=== PATIENT | male | born 1960 | race African-American/Black ===

== ENCOUNTER 2017-01-06 22:59 | Inpatient (IN) | payer BC ==
--- NOTE | ~2017-01-06 | CN ---
Consultation Report [facility] [address] [place]. [address] NAME: SELENE POOL : 64 STATUS : ADM IN PAT#: [id number] AGE: 56 ADM/REG DATE : 01/07/17 MR#: [id number] REPORT SERV DATE: 01/07/17 DICTATED BY: CYNTHIA MOMIN DATE: 01/07/17 REPORT STATUS : Draft TRANSCRIBED BY: MODL DATE: 01/07/17 CONSULTATION DATE OF CONSULTATION: Thank you for the opportunity to consult on this patient. HISTORY OF PRESENT ILLNESS: Mr. Pool is a 56-year-old man with chronic cough and chronic dyspnea, but no previous label of chronic lung disease and no personal smoking history. He is followed by Dr. Sheila Merino, for primary care and Dr. Momo Noel, for cardiac care. He came in with atypical chest pain, shortness of breath. He has had a cough productive of scant amounts of white sputum. No fevers, chills, or night sweats. PAST MEDICAL HISTORY: Significant for no previous label of chronic lung disease, though again he does have a chronic cough for couple of years. He is obese. He has diabetes, hypertension, and previous coronary artery bypass graft surgery. SOCIAL HISTORY: Significant for being a lifelong never smoker. No alcohol abuse, illicit drug use, or occupational exposure to pulmonary toxins. FAMILY HISTORY: Significant for asthma. REVIEW OF SYSTEMS: Review of 10 systems was performed and is positive for what was noted above. PHYSICAL EXAMINATION: GENERAL: On exam, he is awake and alert, and in no obvious respiratory distress. HEENT: Normocephalic, atraumatic. NECK: Supple. No lymphadenopathy. No JVD. CHEST: Symmetric with good expansion bilaterally. LUNGS: Mostly clear, though he does have a prolonged expiratory phase and coughing with performance of a forced vital capacity maneuver. CARDIOVASCULAR: He has S1 and S2, which are distant, but regular rate and rhythm. ABDOMEN: Benign. EXTREMITIES: He has no edema, no clubbing, no cyanosis. ASSESSMENT AND PLAN: Chronic obstructive lung disease. He has severe chronic obstructive lung disease on PFTs going back at least to 2014. He also had a CT scan of the chest in 2014 that showed mild bibasilar bronchiectasis. His repeat CT scan has showed some mild progression, though again it also appears fairly mild and not that different from the CT from two years ago. He does have airway hyperreactivity and appears to have frequent infections and bronchiectasis does help explain both the chronic cough, the chronic sputum production, and his position of worsening cough and worsening sputum production. We will recommend pulmonary clearance maneuvers, bronchodilators, and inhaled cortical steroid, and we will start him on antibiotics and steroids for mild acute exacerbation of bronchiectasis Consultation Report [facility] [id number] [place]. [address] NAME: SELENE POOL : 64 STATUS : ADM IN PAT#: [id number] AGE: 56 ADM/REG DATE : 01/07/17 MR#: [id number] REPORT SERV DATE: 01/07/17 DICTATED BY: CYNTHIA MOMIN DATE: 01/07/17 REPORT STATUS : Draft TRANSCRIBED BY: SIXTO DATE: 01/07/17 and chronic obstructive lung disease. We appreciate the opportunity to participate in his care with you and we will be glad to see him as an outpatient as well. Please do not hesitate to contact me if I could be of any further assistance. ARYA/SIXTO Cynthia Momin M.D. / [id number] CC: Momo Noel III, M.D., [facility], [facility] Sheila Merino M.D.
--- NOTE | ~2017-01-06 | DS ---
Discharge Summary [facility] [address] [facility] [place]. [address] NAME: SELENE BIRMINGHAM : 64 STATUS : DIS IN PAT#: [id number] AGE: 56 ADM/REG DATE : 01/07/17 MR#: [id number] REPORT SERV DATE: 01/23/17 DICTATED BY: MADINA NOEL III DATE: 01/22/17 REPORT STATUS : Draft TRANSCRIBED BY: SIXTO DATE: 01/22/17 Data Collection from hospitalization DISCHARGE DIAGNOSES: 1. Atrial flutter. 2. Coronary artery disease. 3. Nonanginal chest pain. 4. Sternal nonunion. 5. Bronchiectasis with severe asthma. 6. Obstructive sleep apnea. 7. Moderate mitral regurgitation. 8. Hypertension/left ventricular hypertrophy. 9. Morbid obesity. 10.Type 2 diabetes. 11.Hyperlipoproteinemia. 12.History of non-Hodgkin's lymphoma. 13.Hypothyroidism. 14.Osteoarthritis. CONSULTATIONS: Marquise Momin M.D. PROCEDURES PERFORMED: CT scan of the brain without contrast on 01/06/2017. MEDICATIONS: Dulera 200 two puffs twice a day, amiodarone 200 mg as instructed, aspirin 81 mg daily, diltiazem CD 360 mg every morning as instructed, carvedilol 25 mg twice a day as instructed, warfarin 10 mg as directed, and lisinopril 20 mg every morning as instructed. CONDITION AT DISCHARGE: Stable. DISPOSITION: The patient was discharged home on a low-sodium, 1800-calorie cardiac/diabetic diet with activities as instructed. He would follow up with Dr. Marquise Momin six to eight weeks following discharge, he would follow up with Dr. Madina Noel on 01/15/2017, and he would follow up with Dr. Sheila Merino two weeks following discharge. HOSPITAL COURSE: This is a 56-year-old man who has had dull substernal chest pain precipitated by exertion, chest movement, and deep inspiration. He denied any relation to emotional upset or oral intake. He denied any relief with sublingual nitroglycerin. He has had progressive increase in the frequency, duration, and intensity of his chest pain. He had noticed chest pain at rest. The patient was awakened from sleep with chest pain. On 12/30/2014, he underwent 2D and Doppler echocardiogram, which demonstrated mild concentric left ventricular hypertrophy and mild diastolic dysfunction. On 11/03/2015, the patient underwent intravenous regadenoson PET scan, which demonstrated reversible inferolateral defect and calculated global left ventricular ejection fraction of 40%. The patient had a history of postoperative atrial fibrillation. He had undergone synchronized DC cardioversion in 2013. Since that time, he had been maintained on amiodarone. Pulmonary function test in 2015 demonstrated restrictive ventilatory defect and mild obstructive ventilatory defect and severe reduction in the DLCO. The patient complains of occasional palpitation, but denies any history of syncope. The patient complained of dyspnea on Discharge [address] [address] NAME: SELENE BIRMINGHAM : 64 STATUS : DIS IN PAT#: [id number] AGE: 56 ADM/REG DATE : 01/07/17 MR#: [id number] REPORT SERV DATE: 01/23/17 DICTATED BY: MADINA NOEL III DATE: 01/22/17 REPORT STATUS : Draft TRANSCRIBED BY: SIXTO DATE: 01/22/17 exertion at less than 100 feet and occasional paroxysmal nocturnal dyspnea, trepopnea, platypnea, and progressive lower extremity edema extending up to the level of the knees. The patient denied orthopnea or sacral edema. There is no history of rheumatic fever or cardiac murmur. The patient has a chronic cough and chronic dyspnea, but no previous label of chronic lung disease and no personal smoking history. The patient presented with atypical chest pain and shortness of breath. He was admitted to the hospital for further evaluation and treatment. Upon admission, he was seen by Dr. Marquise Momin. The patient had a productive cough of scant amounts of white sputum. It was felt that the patient had chronic obstructive lung disease going back at least to 2014. CT scan of the chest in 2014 had shown mild bibasilar bronchiectasis. Repeat CT scan had shown some mild progression, though again it all appears fairly mild and not that different from the CT scan two years ago. He does have airway hyperreactivity and appears to have frequent infections and bronchiectasis, which does have explained both the chronic cough and chronic sputum production and his position of worsening cough and worsening sputum production. He recommended pulmonary clearance maneuvers, bronchodilators, and inhaled cortical steroids. We were going to start him on antibiotics and steroids for mild acute exacerbation of bronchiectasis and chronic obstructive lung disease. A CT scan of the brain without contrast had been performed. There were mild atrophy features present, but no acute infarction or bleed was seen. The following day, his dyspnea and chest pain had improved. He had palpitations only with exertion. Telemetry revealed atrial flutter with controlled ventricular response. He was changed from IV diltiazem to oral diltiazem. The patient had obstructive sleep apnea with 4.9 second pauses. He was fleeing mildly better. His chest tightness had decreased. His cough had decreased. Steroids, antibiotics, and bronchodilators were continued. On 01/09/2017, he had some left hand paresthesias. Telemetry continued to show atrial flutter. He had no edema. INR level was 1.3. Diltiazem CD was increased. Amiodarone was increased. Lisinopril was increased as well as warfarin. On 01/10/2017, he continued to improve. Dulera was continued at this time. He remained in atrial flutter with a controlled ventricular response. He had 1+ pitting bilateral pitting edema. Dyspnea and palpitations had improved. Warfarin was increased. Over the next couple of days, discharge planning was performed. Bumetanide was discontinued. Warfarin was decreased. On 01/12/2017, he did have chest pain with coughing. He had no dyspnea on exertion or palpitations. Discharge instructions were given. Due to his improved and stable condition, he was discharged home with the above-stated instructions. Information collected by: Evelyn Nevarez I submit the above information as my discharge summary. TG/MODL Madina Noel III, M.D., [facility], [facility] / [id number] Discharge Summary [address] [address] NAME: SELENE BIRMINGHAM : 64 STATUS : DIS IN PAT#: [id number] AGE: 56 ADM/REG DATE : 01/07/17 MR#: [id number] REPORT SERV DATE: 01/23/17 DICTATED BY: MADINA NOEL III DATE: 01/22/17 REPORT STATUS : Draft TRANSCRIBED BY: MODL DATE: 01/22/17 CC: Madina Noel III, M.D., [facility], [facility] Sheila Merino M.D.
[2017-01-06 22:11] LABS: BASOPHILS 0.5 %; BASOPHILS ABSOLUTE 0.03 10/3/uL (0.0-0.16); EOSINOPHILS 3.3 %; EOSINOPHILS ABSOLUTE 0.19 10/3/uL (0.0-0.53); ER CBC TAT 0 Hrs 02 Mins; HEMATOCRIT 33.2 % (40.0-51.0); HEMOGLOBIN 9.9 g/dL (13.6-17.8); IMMATURE GRANULOCYTES 0.3 %; IMMATURE GRANULOCYTES ABSOLUTE 0.02 10/3/uL (0.0-0.11); LYMPHOCYTES 20.2 %; LYMPHOCYTES ABSOLUTE 1.16 10/3/uL (0.67-4.30); MEAN CORPUS HGB CONC 29.8 g/dL (32.0-36.0); MEAN CORPUSCULAR HEMOGLOB 22.9 pg (26.0-34.0); MEAN PLATELET VOLUME 9.2 fL (9.2-13.0); MONOCYTES 8.2 %; MONOCYTES ABSOLUTE 0.47 10/3/uL (0.21-1.20); NEUTROPHILS 67.5 %; NEUTROPHILS ABSOLUTE 3.88 10/3/uL (2.02-8.40); PLATELET COUNT 92 10/3/uL (150-400); RBC DISTRIBUTION WIDTH 16.5 % (12.0-16.0); RED CELL COUNT 4.32 10/6/uL (4.7-6.1); WHITE BLOOD CELLS 5.8 10/3/uL (4.5-10.5)
[2017-01-06 22:12] LABS: MANUAL DIFF NO %; MEAN CORPUSCULAR VOLUME 76.9 fL (80-100)
[2017-01-06 22:24] LABS: INTERNATIONAL NORMAL RATI 1.2 UNITS (-); PARTIAL THROMBO TIME 30.4 SEC (22.5-37.2)
[2017-01-06 22:25] LABS: PROTIME (NOT ORD) 14.9 SEC (12.0-14.5)
[2017-01-06 22:27] LABS: BUN (BLOOD UREA NITROGEN) 23 MG/DL (6-23); CALCIUM, SERUM 9.9 MG/DL (8.5-10.4); CHEST PAIN PROFILE TAT 0 Hrs 18 Mins; CHLORIDE, SERUM 111 MMOL/L (96-112); CO2 (CARBON DIOXIDE) 30 MMOL/L (24-34); CREATININE 1.42 MG/DL (0.70-1.30); GFR AFRICAN AMERICAN 64 ML/MIN (>=60); GFR NON AFRICAN AMERICAN 56 ML/MIN (>=60); GLUCOSE, SERUM 222 MG/DL (60-99); SODIUM, SERUM 145 MMOL/L (135-148); TROPONIN I <0.02 NG/ML (<0.05)
[~2017-01-06 22:59] MED LIST: ASAB PO; COREG25 PO; DIGITEK0.25 MG PO; FE; FE OR; FLONASE NAS; GLUCOPHAGE1000 MG PO; JANUMET1 TA1 PO; KLONO1 PO; LEXAPRO20 PO; LIPITOR40 PO; LORTAB 5 PO; MICRONASE2.5 MG PO; MULTIPLE VIT PO; PACERONE200 MG PO; PRADAXA150 MG PO; PRILO PO; PRIN10 PO; PROTONIX PO; SINGULAIR1 PO; SYMBICORT 160/41 INH INH
[2017-01-06] MEDS ORDERED: LIPITOR40 PO (23:24)
[2017-01-06] MEDS ORDERED: ASAB PO (23:24)
[2017-01-06] MEDS ORDERED: SYN.05 PO (23:24)
[2017-01-06] MEDS ORDERED: BUM1 PO (23:25)
[2017-01-06] MEDS ORDERED: COREG25 PO (23:25)
[2017-01-06] MEDS ORDERED: CORDARONE PO (23:25)
[2017-01-06] MEDS ORDERED: GLUCOPHAGE1000 MG PO (23:25)
[2017-01-06] MEDS ORDERED: PRIN20 PO (23:26)
[2017-01-06] MEDS ORDERED: LEXAPRO20 PO (23:26)
[2017-01-06] MEDS ORDERED: CENTRUM PO (23:27)
[2017-01-06] MEDS ORDERED: KLONO5 PO (23:27)
[2017-01-06] MEDS ORDERED: DIABET2.5 PO (23:27)
[2017-01-06] MEDS ORDERED: C1 PO (23:27)
[2017-01-06] MEDS ORDERED: NITROSTAT0.4 MG SL (23:29)
[2017-01-08 04:51] LABS: BASOPHILS 0.3 %; BASOPHILS ABSOLUTE 0.02 10/3/uL (0.0-0.16); EOSINOPHILS 0.2 %; EOSINOPHILS ABSOLUTE 0.01 10/3/uL (0.0-0.53); HEMATOCRIT 33.8 % (40.0-51.0); HEMOGLOBIN 10.3 g/dL (13.6-17.8); IMMATURE GRANULOCYTES 0.2 %; IMMATURE GRANULOCYTES ABSOLUTE 0.01 10/3/uL (0.0-0.11); INTERNATIONAL NORMAL RATI 1.2 UNITS (-); LYMPHOCYTES 15.8 %; LYMPHOCYTES ABSOLUTE 1.05 10/3/uL (0.67-4.30); MEAN CORPUS HGB CONC 30.5 g/dL (32.0-36.0); MEAN CORPUSCULAR HEMOGLOB 23.5 pg (26.0-34.0); MEAN CORPUSCULAR VOLUME 77.2 fL (80-100); MEAN PLATELET VOLUME 9.6 fL (9.2-13.0); MONOCYTES 8.9 %; MONOCYTES ABSOLUTE 0.59 10/3/uL (0.21-1.20); NEUTROPHILS 74.6 %; NEUTROPHILS ABSOLUTE 4.95 10/3/uL (2.02-8.40); PLATELET COUNT 90 10/3/uL (150-400); PROTIME (NOT ORD) 15.2 SEC (12.0-14.5); RBC DISTRIBUTION WIDTH 16.3 % (12.0-16.0); RED CELL COUNT 4.38 10/6/uL (4.7-6.1); WHITE BLOOD CELLS 6.6 10/3/uL (4.5-10.5)
[2017-01-08 04:54] LABS: MANUAL DIFF NO %
[2017-01-08 05:08] LABS: FREE T4 1.05 NG/DL (0.76-1.46)
[2017-01-08 05:26] LABS: ULTRASENSITIVE TSH 2.52 MCIU/ML (0.358-3.740)
[2017-01-08 05:43] LABS: INTACT PTH (ICMA) 168.5 PG/ML (10.0-65.0)
[2017-01-09 05:22] LABS: BUN (BLOOD UREA NITROGEN) 24 MG/DL (6-23); CALCIUM, SERUM 10.1 MG/DL (8.5-10.4); CHLORIDE, SERUM 106 MMOL/L (96-112); CO2 (CARBON DIOXIDE) 29 MMOL/L (24-34); CREATININE 1.18 MG/DL (0.70-1.30); GFR AFRICAN AMERICAN 81 ML/MIN (>=60); GFR NON AFRICAN AMERICAN 70 ML/MIN (>=60); POTASSIUM, SERUM 4.3 MMOL/L (3.5-5.3); SODIUM, SERUM 142 MMOL/L (135-148)
[2017-01-09 05:26] LABS: GLUCOSE, SERUM 88 MG/DL (60-99)
[2017-01-09 05:35] LABS: INTERNATIONAL NORMAL RATI 1.3 UNITS (-); PROTIME (NOT ORD) 15.8 SEC (12.0-14.5)
[2017-01-09 05:39] LABS: BASOPHILS 0.4 %; BASOPHILS ABSOLUTE 0.03 10/3/uL (0.0-0.16); EOSINOPHILS 0.8 %; EOSINOPHILS ABSOLUTE 0.06 10/3/uL (0.0-0.53); HEMOGLOBIN 10.5 g/dL (13.6-17.8); IMMATURE GRANULOCYTES 0.3 %; IMMATURE GRANULOCYTES ABSOLUTE 0.02 10/3/uL (0.0-0.11); LYMPHOCYTES 21.4 %; LYMPHOCYTES ABSOLUTE 1.61 10/3/uL (0.67-4.30); MEAN CORPUS HGB CONC 30.9 g/dL (32.0-36.0); MEAN CORPUSCULAR HEMOGLOB 23.6 pg (26.0-34.0); MEAN CORPUSCULAR VOLUME 76.4 fL (80-100); MEAN PLATELET VOLUME 9.8 fL (9.2-13.0); MONOCYTES 11.7 %; MONOCYTES ABSOLUTE 0.88 10/3/uL (0.21-1.20); NEUTROPHILS 65.4 %; NEUTROPHILS ABSOLUTE 4.94 10/3/uL (2.02-8.40); PLATELET COUNT 96 10/3/uL (150-400); RBC DISTRIBUTION WIDTH 16.6 % (12.0-16.0); RED CELL COUNT 4.45 10/6/uL (4.7-6.1); WHITE BLOOD CELLS 7.5 10/3/uL (4.5-10.5)
[2017-01-09 05:47] LABS: MANUAL DIFF NO %
[2017-01-09 06:21] LABS: ELLIPTOCYTES 1+ (3-10/OIF) (0-2/OIF); OVALOCYTES 1+ (3-10/OIF) (0-2/OIF); PLATELET ESTIMATE DEC (ADEQUATE)
[2017-01-09 06:22] LABS: HYPOCHROMIA 1+ (3-10/OIF) (0-2/OIF)
[2017-01-10 04:51] LABS: BASOPHILS 0.4 %; BASOPHILS ABSOLUTE 0.03 10/3/uL (0.0-0.16); EOSINOPHILS 0.1 %; EOSINOPHILS ABSOLUTE 0.01 10/3/uL (0.0-0.53); HEMATOCRIT 33.7 % (40.0-51.0); HEMOGLOBIN 10.3 g/dL (13.6-17.8); IMMATURE GRANULOCYTES 0.3 %; IMMATURE GRANULOCYTES ABSOLUTE 0.02 10/3/uL (0.0-0.11); LYMPHOCYTES 22.1 %; LYMPHOCYTES ABSOLUTE 1.65 10/3/uL (0.67-4.30); MEAN CORPUS HGB CONC 30.6 g/dL (32.0-36.0); MEAN CORPUSCULAR HEMOGLOB 23.3 pg (26.0-34.0); MEAN CORPUSCULAR VOLUME 76.1 fL (80-100); MEAN PLATELET VOLUME 10.1 fL (9.2-13.0); MONOCYTES 12.2 %; MONOCYTES ABSOLUTE 0.91 10/3/uL (0.21-1.20); NEUTROPHILS 64.9 %; NEUTROPHILS ABSOLUTE 4.85 10/3/uL (2.02-8.40); PLATELET COUNT 106 10/3/uL (150-400); RBC DISTRIBUTION WIDTH 16.5 % (12.0-16.0); RED CELL COUNT 4.43 10/6/uL (4.7-6.1); WHITE BLOOD CELLS 7.5 10/3/uL (4.5-10.5)
[2017-01-10 04:53] LABS: MANUAL DIFF NO %
[2017-01-10 04:57] LABS: INTERNATIONAL NORMAL RATI 1.4 UNITS (-)
[2017-01-10 05:06] LABS: BUN (BLOOD UREA NITROGEN) 30 MG/DL (6-23); CALCIUM, SERUM 10.4 MG/DL (8.5-10.4); CHLORIDE, SERUM 106 MMOL/L (96-112); CO2 (CARBON DIOXIDE) 29 MMOL/L (24-34); CREATININE 1.36 MG/DL (0.70-1.30); GFR AFRICAN AMERICAN 68 ML/MIN (>=60); GFR NON AFRICAN AMERICAN 59 ML/MIN (>=60); POTASSIUM, SERUM 4.5 MMOL/L (3.5-5.3); SODIUM, SERUM 142 MMOL/L (135-148)
[2017-01-10 05:07] LABS: GLUCOSE, SERUM 109 MG/DL (60-99)
[2017-01-11 05:52] LABS: INTERNATIONAL NORMAL RATI 1.8 UNITS (-)
[2017-01-11 06:05] LABS: BASOPHILS 0.5 %; BASOPHILS ABSOLUTE 0.04 10/3/uL (0.0-0.16); EOSINOPHILS 0.3 %; EOSINOPHILS ABSOLUTE 0.02 10/3/uL (0.0-0.53); HEMATOCRIT 34.3 % (40.0-51.0); HEMOGLOBIN 10.8 g/dL (13.6-17.8); IMMATURE GRANULOCYTES 0.3 %; IMMATURE GRANULOCYTES ABSOLUTE 0.02 10/3/uL (0.0-0.11); LYMPHOCYTES 27.6 %; LYMPHOCYTES ABSOLUTE 2.17 10/3/uL (0.67-4.30); MEAN CORPUS HGB CONC 31.5 g/dL (32.0-36.0); MEAN CORPUSCULAR HEMOGLOB 23.5 pg (26.0-34.0); MEAN CORPUSCULAR VOLUME 74.7 fL (80-100); MEAN PLATELET VOLUME 10.2 fL (9.2-13.0); MONOCYTES 14.8 %; MONOCYTES ABSOLUTE 1.16 10/3/uL (0.21-1.20); NEUTROPHILS 56.5 %; NEUTROPHILS ABSOLUTE 4.45 10/3/uL (2.02-8.40); PLATELET COUNT 109 10/3/uL (150-400); RBC DISTRIBUTION WIDTH 16.4 % (12.0-16.0); RED CELL COUNT 4.59 10/6/uL (4.7-6.1); WHITE BLOOD CELLS 7.9 10/3/uL (4.5-10.5)
[2017-01-11 06:06] LABS: CALCIUM, SERUM 10.5 MG/DL (8.5-10.4); CHLORIDE, SERUM 104 MMOL/L (96-112); CO2 (CARBON DIOXIDE) 30 MMOL/L (24-34); CREATININE 1.53 MG/DL (0.70-1.30); GFR AFRICAN AMERICAN 59 ML/MIN (>=60); GFR NON AFRICAN AMERICAN 51 ML/MIN (>=60); MANUAL DIFF NO %; POTASSIUM, SERUM 4.9 MMOL/L (3.5-5.3); SODIUM, SERUM 139 MMOL/L (135-148)
[2017-01-11 06:07] LABS: PROTIME (NOT ORD) 20.4 SEC (12.0-14.5)
[2017-01-11 06:10] LABS: BUN (BLOOD UREA NITROGEN) 35 MG/DL (6-23); GLUCOSE, SERUM 73 MG/DL (60-99)
[2017-01-11 07:06] LABS: ELLIPTOCYTES 1+ (3-10/OIF) (0-2/OIF); HYPOCHROMIA 1+ (3-10/OIF) (0-2/OIF); MICROCYTES 1+ (5-10/OIF) (0-5/OIF); PLATELET ESTIMATE SLT DEC (ADEQUATE); POIKILOCYTOSIS 1+ (5-10/OIF) (0-5/OIF); TEARDROP SHAPED RBCS OCC (0-2/OIF)
[2017-01-12 06:13] LABS: HEMATOCRIT 32.6 % (40.0-51.0); HEMOGLOBIN 10.2 g/dL (13.6-17.8); MANUAL DIFF YES %; MEAN CORPUS HGB CONC 31.3 g/dL (32.0-36.0); MEAN CORPUSCULAR HEMOGLOB 23.7 pg (26.0-34.0); MEAN CORPUSCULAR VOLUME 75.6 fL (80-100); PLATELET COUNT 101 10/3/uL (150-400); RBC DISTRIBUTION WIDTH 16.1 % (12.0-16.0); RED CELL COUNT 4.31 10/6/uL (4.7-6.1); WHITE BLOOD CELLS 7.6 10/3/uL (4.5-10.5)
[2017-01-12 06:16] LABS: INTERNATIONAL NORMAL RATI 2.5 UNITS (-)
[2017-01-12 06:19] LABS: PROTIME (NOT ORD) 26.4 SEC (12.0-14.5)
[2017-01-12 06:26] LABS: CHLORIDE, SERUM 105 MMOL/L (96-112); CREATININE 1.48 MG/DL (0.70-1.30); GFR AFRICAN AMERICAN 61 ML/MIN (>=60); GFR NON AFRICAN AMERICAN 53 ML/MIN (>=60); POTASSIUM, SERUM 4.4 MMOL/L (3.5-5.3); SODIUM, SERUM 139 MMOL/L (135-148)
[2017-01-12 06:27] LABS: BUN (BLOOD UREA NITROGEN) 39 MG/DL (6-23); CO2 (CARBON DIOXIDE) 24 MMOL/L (24-34); GLUCOSE, SERUM 96 MG/DL (60-99)
[2017-01-12 12:21] LABS: BAND NEUTROPHILS 4 %; BASOPHILS 1 %; BASOPHILS ABSOLUTE (CALC) 0.08 10/3/uL (0.0-0.16); LYMPHOCYTES 30 %; LYMPHOCYTES ABSOLUTE (CALC) 2.28 10/3/uL (0.67-4.30); MICROCYTES 1+ (5-10/OIF) (0-5/OIF); MONOCYTES 11 %; MONOCYTES ABSOLUTE (CALC) 0.84 10/3/uL (0.21-1.20); NEUTROPHILS ABSOLUTE (CALC) 4.41 10/3/uL (2.02-8.40); SEGMENTED NEUTROPHIL (0) 54 %; TOTAL NUCLEATED CELLS 100
[2017-01-12 12:22] LABS: ACANTHOCYTES OCC (0-2/OIF); ELLIPTOCYTES 1+ (3-10/OIF) (0-2/OIF); HELMET CELLS OCC (0-2/OIF); PLATELET ESTIMATE SLT DEC (ADEQUATE); POLYCHROMASIA 1+ (2-5/OIF) (0-1/OIF); TARGET CELLS OCC (1-2/OIF) (0-1/OIF); TEARDROP SHAPED RBCS OCC (0-2/OIF)
[2017-01-12 12:23] LABS: HYPOCHROMIA 1+ (3-10/OIF) (0-2/OIF)
[2017-01-12] MEDS ORDERED: DULERA 200 MCG/13 GM INH (12:48)
[2017-01-12] MEDS ORDERED: CARDCD360 PO (13:19)
== END 2017-01-12 14:03 | disposition home or self-care (01) | DRG 309 ==
LOC: ER 22:59 → 5NO 01-07 03:07
PROVIDERS: Hospitalist; Internal Medicine Cardiovascular Disease
DX: I48.3 Typical atrial flutter (principal); Z68.42 Body mass index [BMI] 45.0-49.9, adult; I50.9 Heart failure, unspecified; I11.0 Hypertensive heart disease with heart failure; J47.1 Bronchiectasis with (acute) exacerbation; Z95.1 Presence of aortocoronary bypass graft; E11.9 Type 2 diabetes mellitus without complications; I25.10 Atherosclerotic heart disease of native coronary artery without angina pectoris; G47.33 Obstructive sleep apnea (adult) (pediatric); E78.5 Hyperlipidemia, unspecified; E66.01 Morbid (severe) obesity due to excess calories; T81.89XD Other complications of procedures, not elsewhere classified, subsequent encounter; I34.0 Nonrheumatic mitral (valve) insufficiency
CPT/HCPCS: 70450; 71020; 80048; 82962; 83735; 83880; 83970; 84439; 84443; 84484; 85025; 85610; 85730; 93005; 94640; 94668; 99285; A9270-GY; G0257